=== PATIENT | male | born 1930 | race Caucasian/White ===

== ENCOUNTER 2018-10-27 20:40 | Observation (INO) ==
--- NOTE | 2018-10-27 21:33 | Emergency Department Note ---
Disposition Clinical Impression: Acute exacerbation of chronic obstructive airways disease Disposition: Admitted As Inpatient Condition: Fair Time of Disposition: 00:55 SOB HPI - General Chief Complaint: ED Shortness of Breath/Dyspnea Stated Complaint: shortness of breath since 0830 Time Seen by Provider: 10/27/18 21:30 Source: patient Mode of arrival: private vehicle Limitations: no limitations Nursing Notes Reviewed: Yes Vital Signs Reviewed: Yes - History of Present Illness Patient presents to the ED with with complaint of shortness of breath. States it has been going on since about 8:30 this morning but he felt fine when he first woke up. He has not had any cough. No leg swelling. No chest pain. No fever or chills. No abdominal pain, nausea, vomiting, diarrhea or constipation. He states he recently got over pneumonia that was diagnosed back on September 30. States he had a chest x-ray on October 20 that showed the pneumonia was gone. He was on a Z-Nj and steroids at that time. He normally wears 2 L of oxygen only at night but today was wearing it all day long because of his shortness of breath without improvement. He did 2 nebulizer treatments at home as well without improvement. He also took his regular Singulair and Breo. History is notable for COPD, CAD, hypertension and prior AL with stents. - Related Data Home Medications Medication Instructions Recorded Confirmed Albuterol Sulfate [Proair Hfa] 2 puff IH DAILY PRN 11/10/15 10/27/18 Levothyroxine [Synthroid] 75 mcg PO DAILY 11/10/15 10/27/18 Metoprolol XL (24 HR) Succ [Toprol 25 mg PO DAILY 11/10/15 10/27/18 Xl] Montelukast [Singulair] 10 mg PO DAILY 11/10/15 10/27/18 Sertraline [Zoloft] 25 mg PO DAILY 11/10/15 10/27/18 Aspirin [Lo-Dose Aspirin EC] 81 mg PO DAILY 01/02/16 10/27/18 Albuterol Sulfate 2.5 aerosol IH TID 01/28/17 10/27/18 Breo Ellipta 200-25 Mcg INH 100 mcg PO DAILY 01/28/17 10/27/18 Albuterol Sulfate [Proair Hfa] 2 puff IH Q4H PRN 01/30/18 10/27/18 Ipratropium [place] 15 ml NS BID 01/30/18 10/28/18 Multivit-Min/FA/Lycopen/Lutein 1 each PO DAILY 01/30/18 10/27/18 [Centrum Silver Men Tablet] Ascorbic Acid/Bioflavonoids [Vit 1 each PO DAILY 10/27/18 10/27/18 C-Bioflavonoids Tab SA] Magnesium Oxide [Magnesium] 400 mg PO DAILY 10/27/18 10/27/18 Simvastatin [Zocor] 40 mg PO HS 10/27/18 10/27/18 Allergies Allergy/AdvReac Type Severity Reaction Status Date / Time No Known Allergies Allergy Verified 01/30/18 09:37 Constitutional: Denies: fever, chills, weakness, weight change Eyes: Denies: eye pain, eye discharge, vision change ENT ED: Denies: ear pain, throat pain, dental pain, hearing loss, epistaxis, congestion, dysphagia Cardiovascular: Denies: chest pain, palpitations, dyspnea on exertion, edema, syncope Respiratory: Reports: as per HPI, dyspnea. Denies: cough, wheezes, hemoptysis, stridor Gastrointestinal: Denies: abdominal pain, nausea, vomiting, diarrhea, constipation, hematemesis, melena, hematochezia Genitourinary: Denies: urgency, dysuria, frequency, hematuria Musculoskeletal: Denies: back pain, neck pain, arthralgia, myalgia Integumentary: Denies: rash, abrasion, lesions Neurological: Denies: headache, weakness, numbness, paresthesias, confusion, abnormal gait, vertigo Psychiatric: Denies: anxiety, depression, suicidal thoughts, homicidal thoughts, auditory hallucinations, visual hallucinations Endocrine: Denies: fatigue Hematological/Lymphatic: Denies: easy bleeding, easy bruising Allergic/Immunologic: Denies: facial swelling, urticaria Past Medical History - Past Medical History Medical history: Reports: COPD, coronary artery disease, hyperlipidemia, hypertension, myocardial infarction, thyroid disease, other Surgical history: Reports: angioplasty/stent, appendectomy Psychiatric history: Reports: no psych history - Social History Smoking Status: Former smoker Smokeless Tobacco Status: No Alcohol use: Reports: none Drug use: Reports: none Physical Exam - General Limitations: no limitations General appearance: alert, anxious - Head Head exam: atraumatic, normocephalic, normal inspection - Eye Eye exam: Present: normal appearance, PERRL, EOMI - ENT ENT exam: normal exam, normal oropharynx, mucous membranes moist - Neck Neck exam: Present: normal inspection, full ROM, trachea midline - Chest Chest inspection: Present: normal inspection, symmetric chest wall rise - Respiratory Respiratory exam: Absent: respiratory distress - Expanded Respiratory Exam Location: wheezes: Left, Right, Upper, Lower (scattered), decreased breath sounds: Left, Right, Upper, Lower - Cardiovascular Cardiovascular exam: Present: regular rate, normal rhythm, normal heart sounds - Abdominal Exam Abdominal exam: Present: soft, Non-Tender. Absent: tenderness, distention, guarding, rebound, rigidity - Extremities Exam Extremities exam: Present: normal inspection, full ROM. Absent: tenderness, pedal edema - Back Exam Back exam: Present: normal inspection, full ROM. Absent: tenderness - Neurological Exam Neurological exam: Present: alert, oriented X3 - Psychiatric Psychiatric exam: Present: normal affect, normal mood - Skin Skin exam: Present: warm, dry, intact, normal color Course Course Narrative: Patient presents to the ED with shortness of breath is been going on all day. He was 84% on room air on arrival and was placed on 2 L with improvement in the low 90s. Vital signs are otherwise stable although he is hypertensive. Lung sounds are diminished with scattered wheezing. He will be given a nebulizer treatment and steroids for what may be a simple COPD exacerbation. Will obtain lab work and chest x-ray for further evaluation however given his recent pneumonia. - Reevaluation(s) Reevaluation #1: Chest x-ray showed COPD changes and what was favored to be atelectasis versus pneumonia. He does have a elevated white blood cell count however that is afebrile. While lung sounds were improved after his treatment he was still very short of breath with just ambulating to the bathroom. Discussed with patient admission for his COPD exacerbation and he is in agreement. Will cover with doxycycline. I spoke to the hospitalist, Dr. Mcdaniels, who agreed to accept patient. Vital Signs O2 Sat by Pulse Oximetry 84 10/27/18 20:40 Temperature 98.3 F 10/28/18 03:07 Pulse Rate 89 10/28/18 03:07 Respiratory Rate 17 10/28/18 03:07 Blood Pressure 149/75 10/28/18 03:07 O2 Sat by Pulse Oximetry 94 10/28/18 03:07 Oxygen Delivery Oxygen Delivery Nasal Cannula Shortness of Breath/Dyspnea - Differential Diagnosis Likely: acute exacerbation of chronic obstructive airways disease, congestive heart failure, pneumonia - Medical Records Medical records reviewed: Yes I reviewed the patient's medical records. - Lab Data Lab results reviewed: Yes I reviewed the patient's lab results. Result diagrams: 10/27/18 20:50 10/27/18 20:50 Lab Results 10/27/18 10/27/18 10/27/18 Range/Units 20:50 20:50 20:50 WBC 16.2 H (4.3-11.1) K/mcL RBC 4.17 L (4.19-5.50) M/mcL Hgb 13.1 (12.9-16.9) g/dL Hct 39.1 (37.5-50.1) % MCV 93.8 (83.0-100.0) fL MCH 31.4 (28.0-33.3) pg MCHC 33.5 (31.6-35.5) g/dL RDW 13.4 (11.5-14.5) % Plt Count 256 (140-400) K/mcL MPV 9.9 (9.4-12.4) fL Immature Gran % 0.4 (0-4) % Seg Neutrophils % 80.7 % Lymphocytes % 9.9 % Monocytes % 7.6 % Eosinophils % 1.2 % Basophils % 0.2 % Neutrophils # 13.1 H (1.6-8.9) K/mcL Lymphocytes # 1.6 (0.6-4.6) K/mcL Monocytes # 1.2 (0.0-1.3) K/mcL Eosinophils # 0.2 (0.0-0.6) K/mcL Basophils # 0.0 (0.0-0.2) K/mcL PT 12.3 H (9.4-12.1) Seconds INR 1.1 Sodium 133 L (136-145) mEq/L Potassium 3.9 (3.5-5.1) mEq/L Chloride 99 (98-107) mEq/L Carbon Dioxide 27 (23-29) mEq/L BUN 21 (8-23) mg/dL Creatinine 1.04 (0.70-1.30) mg/dL Est GFR ( Amer) > 60 (> 60) Est GFR (Non-Af Amer) > 60 (> 60) BUN/Creatinine Ratio 20 (6-26) Glucose 104 (70-105) mg/dL Calculated Osmolality 279 L (280-300) Lactic Acid (0.5-2.2) mmol/L Calcium 8.9 (8.6-10.3) mg/dL Troponin I < 0.03 (< 0.04) ng/mL B-Natriuretic Peptide (Less than 100) pg/mL 10/27/18 10/27/18 Range/Units 20:50 20:50 WBC (4.3-11.1) K/mcL RBC (4.19-5.50) M/mcL Hgb (12.9-16.9) g/dL Hct (37.5-50.1) % MCV (83.0-100.0) fL MCH (28.0-33.3) pg MCHC (31.6-35.5) g/dL RDW (11.5-14.5) % Plt Count (140-400) K/mcL MPV (9.4-12.4) fL Immature Gran % (0-4) % Seg Neutrophils % % Lymphocytes % % Monocytes % % Eosinophils % % Basophils % % Neutrophils # (1.6-8.9) K/mcL Lymphocytes # (0.6-4.6) K/mcL Monocytes # (0.0-1.3) K/mcL Eosinophils # (0.0-0.6) K/mcL Basophils # (0.0-0.2) K/mcL PT (9.4-12.1) Seconds INR Sodium (136-145) mEq/L Potassium (3.5-5.1) mEq/L Chloride (98-107) mEq/L Carbon Dioxide (23-29) mEq/L BUN (8-23) mg/dL Creatinine (0.70-1.30) mg/dL Est GFR ( Amer) (> 60) Est GFR (Non-Af Amer) (> 60) BUN/Creatinine Ratio (6-26) Glucose (70-105) mg/dL Calculated Osmolality (280-300) Lactic Acid 0.9 (0.5-2.2) mmol/L Calcium (8.6-10.3) mg/dL Troponin I (< 0.04) ng/mL B-Natriuretic Peptide 162 H (Less than 100) pg/mL - Radiology Data Radiology results reviewed: Yes I reviewed the patient's radiology results. ITS Impressions Chest X-Ray 10/27/18 21:44 IMPRESSION: Emphysema with COPD and basilar opacities favored to represent atelectasis although equivocal for developing airspace disease at the left lung base. RECOMMENDATION: Consider follow-up CT chest for further characterization versus follow-up radiographs in 6-8 weeks. D/ / Juan Ellison / Juan Ellison Interpreting Provider: Juan Ellison - EKG Data EKG attestation: Yes I reviewed and interpreted this EKG. EKG shows normal: Reports: sinus rhythm Rate: Reports: normal Rhythm: Reports: NSR [place]/QRS: Reports: normal Interpretation: Reports: no acute changes
[2018-10-27] MEDS ORDERED: methylPREDNISolone 125 MG/2 ML VIAL IVP ONE (21:44)
[2018-10-27] MEDS ORDERED: Ipratropium/Albuterol Neb 3 ML IH ONE (21:44)
[2018-10-27 21:50] LABS: Basophils % 0.2 %; Eosinophils # 0.2 K/mcL (0.0-0.6); Eosinophils % 1.2 %; Hematocrit 39.1 % (37.5-50.1); Hemoglobin 13.1 g/dL (12.9-16.9); Immature Granulocytes % 0.4 % (0-4); Lymphocytes # 1.6 K/mcL (0.6-4.6); Lymphocytes % 9.9 %; Mean Corpuscular HGB Conc 33.5 g/dL (31.6-35.5); Mean Corpuscular Hemoglobin 31.4 pg (28.0-33.3); Mean Corpuscular Volume 93.8 fL (83.0-100.0); Mean Platelet Volume 9.9 fL (9.4-12.4); Monocytes # 1.2 K/mcL (0.0-1.3); Monocytes % 7.6 %; Neutrophils # 13.1 K/mcL (1.6-8.9); Platelet Count 256 K/mcL (140-400); Red Blood Count 4.17 M/mcL (4.19-5.50); Red Cell Distribution Width 13.4 % (11.5-14.5); Segmented Neutrophils % 80.7 %; White Blood Count 16.2 K/mcL (4.3-11.1)
[2018-10-27 21:52] LABS: INR 1.1; Prothrombin Time 12.3 Seconds (9.4-12.1)
[2018-10-27 22:00] LABS: BUN/Creatinine Ratio 20 (6-26); Blood Urea Nitrogen 21 mg/dL (8-23); Calcium 8.9 mg/dL (8.6-10.3); Carbon Dioxide 27 mEq/L (23-29); Chloride 99 mEq/L (98-107); Glucose 104 mg/dL (70-105); Osmolality,Calculated 279 (280-300); Potassium 3.9 mEq/L (3.5-5.1); Sodium 133 mEq/L (136-145); eGFR For African Americans > 60 (> 60); eGFR For Non-African Americans > 60 (> 60)
[2018-10-27 22:04] LABS: Troponin I < 0.03 ng/mL (< 0.04)
[2018-10-28] MEDS ORDERED: Doxycycline 100 MG CAPSULE PO ONE (00:54)
[2018-10-28] MEDS ORDERED: Naloxone 0.4 MG/ML INJ IVP PRN ×2 (00:56→01:19)
[2018-10-28] MEDS: Ipratropium/Albuterol Neb 3 ML IH SCH ×4 (02:12→15:40)
[2018-10-28] MEDS ORDERED: BREO ELLIPTA PO SCH (09:00)
[2018-10-28] MEDS ORDERED: Aspirin Enteric Coated 81 MG Tablet PO SCH (09:00)
[2018-10-28] MEDS ORDERED: Magnesium Oxide 400 MG TABLET PO SCH (09:00)
[2018-10-28] MEDS ORDERED: Metoprolol XL (24 HR) Succ 25 MG TAB.ER.24H PO SCH (09:00)
[2018-10-28] MEDS ORDERED: Multivit/Ca/Min/Fe/FA 1 TAB TABLET PO SCH (09:00)
[2018-10-28] MEDS ORDERED: ASCORBIC ACID PO SCH (09:00)
[2018-10-28] MEDS ORDERED: BIOFLAVONOIDS PO SCH (09:00)
--- NOTE | 2018-10-28 12:39 | Electrocardiograph Report ---
[facility] Test Date: 2018-10-27 Pat Name: Brent Chavez Department: EDP-11 Room: [facility] Gender: M Elect Equip Maint Eng: : 1930 Requested By: Jessica Mishra Order Number: [id number] Reading MD: Matthew Jesus Measurements Intervals [place] Rate: 91 P: 83 [place]: 243 QRS: 79 QRSD: 87 T: 44 QT: 346 QTc: 426 Interpretive Statements Sinus rhythm Electronically Signed On 10-28-2018 12:37:53 EDT by Matthew Jesus
--- NOTE | 2018-10-28 14:39 | Internal Med History&Physical ---
Date of Encounter: 10/28/18 Time of Encounter: 14:10 Assessment and Plan (1) Community acquired pneumonia Current visit: No Status: Acute He was given doxycycline and Solu-Medrol in emergency room. He will be given Ceftin and Zithromax with lactobacillus at discharge. Qualifiers: Laterality: unspecified laterality Qualified Code(s): J18.9 - Pneumonia, unspecified organism (2) Hypothyroidism Current visit: No Status: Chronic TSH was normal at 0.404 on 02/12/2018. Qualifiers: Hypothyroidism type: unspecified Qualified Code(s): E03.9 - Hypothyroidism, unspecified Internal Medicine - H&P: HPI Chief complaint: Dyspnea Admitted From: Emergency Dept Plans for Post Hospital Care: Home History of present illness: Mr. Chavez is a 88 year old male came to emergency room stating he had onset of dyspnea a few hours earlier while doing usual activities at home. He used mental oxygen he previously been prescribed but felt minimally improved. He f elt his heart rate was fast. He came to emergency room was evaluated and was felt to have exacerbation of COPD. He was admitted to [facility] floor for ongoing care needs. He states he feels significantly improved at the present time and near baseline and wishes to be discharged home. His respiratory history is significant for having smoked from age [age] up to 1-1/2 packs per day. He had PFTs ap proximately 2005 and was told he had COPD. He wears oxygen at bedtime and when necessary during the daytime. He has not been evaluated for ANNI. He has hypertension and ASHD status post IL in 1994 and 2002. He had PTCA 1994 without stents and PTCA 2002 with stents. His last EST was December 2015 and showed no perfusion evidence and equivocal EKG evidence of ischemia. He follows with a [place] event sales manager as well as a event sales manager in [place]. He was diagnosed with factor V Leiden deficiency approximately 1999 after his granddaughter had 2 miscarriages. He denies known DVT or pulmonary embolus. He took Coumadin briefly but after being told of the risks of taking it he decided to use aspirin 162 mg daily. Past Med Surg Social Fam HX - Past Medical History Medical history: COPD, coronary artery disease, hyperlipidemia, hypertension, myocardial infarction, thyroid disease, other Additional medical history: Factor 5; [place] x2 (2002) Psychiatric history: no psych history - Past Surgical History Surgical History: angioplasty/stent, appendectomy - Social History Smoking Status: Former smoker Smokeless Tobacco Status: No Alcohol use: none Drug use: none - Family History Father Living Status: Cause of : Blood Clot Internal Medicine - H&P: Meds Albuterol Sulfate [Proair Hfa] 2 puff IH DAILY PRN 11/10/15 [History] Levothyroxine [Synthroid] 75 mcg PO DAILY 11/10/15 [History] Metoprolol XL (24 HR) Succ [Toprol Xl] 25 mg PO DAILY 11/10/15 [History] Montelukast [Singulair] 10 mg PO DAILY 11/10/15 [History] Sertraline [Zoloft] 25 mg PO DAILY 11/10/15 [History] Aspirin [Lo-Dose Aspirin EC] 81 mg PO DAILY 01/02/16 [History] Albuterol Sulfate 2.5 aerosol IH TID 01/28/17 [History] Breo Ellipta 200-25 Mcg INH 100 mcg PO DAILY 01/28/17 [History] Albuterol Sulfate [Proair Hfa] 2 puff IH Q4H PRN 01/30/18 [History] Ipratropium [place] 15 ml NS BID 01/30/18 [History] Multivit-Min/FA/Lycopen/Lutein [Centrum Silver Men Tablet] 1 each PO DAILY 01/30/18 [History] Ascorbic Acid/Bioflavonoids [Vit C-Bioflavonoids Tab SA] 1 each PO DAILY 10/27/18 [History] Magnesium Oxide [Magnesium] 400 mg PO DAILY 10/27/18 [History] Simvastatin [Zocor] 40 mg PO HS 10/27/18 [History] Allergy/AdvReac Type Severity Reaction Status Date / Time No Known Allergies Allergy Verified 01/30/18 09:37 All Systems PM: A 10-system review of systems was performed and is negative for pertinent findings except as documented above in the HPI. Review of systems: Review of systems from his January 2017 [facility] hospitalization were reviewed and revised as below. Gen.: His weight has been stable at approximately 74 kg since January 2017. Cardiovascular: As per history of present illness Respiratory: As per history of present illness. GI: He denies disorders with his liver gallbladder or exocrine pancreas : No history of hematuria dysuria or kidney stones Neurologic: No history of large distribution strokes or seizures Endocrine: He denies diabetes but has hypothyroidism and hyperlipidemia Hematology/oncology: He has factor V Leiden deficiency but denies other blood disorders or malignancies Psychiatric: Denies anxiety other mental health issues. He has depression and is on Zoloft [place] skeletal: He has arthritis but no known gout or osteoporosis. - Constitutional Vitals: Temp Pulse Resp BP Pulse Ox 97.8 F 102 16 124/62 95 10/28/18 12:07 10/28/18 12:07 10/28/18 12:07 10/28/18 12:07 10/28/18 12:07 Exam: Gen.: He is a well-developed well-nourished male resting comfortably in bed who appears in no acute distress HEENT: Head is atraumatic and normocephalic. Eyes: EOMI. There is no scleral icterus. Mouth: Mucosa is moist. Neck: Supple and nontender. There is no thyromegaly or adenopathy noted. Heart: Regular without murmurs gallops or ectopics Lungs: No wheezes or crackles are heard. Abdomen: Soft and nontender. No masses or guarding are noted. Extremities: There is no cyanosis edema or clubbing noted. Dorsalis pedis and posterior tibial pulses are trace to 1+ palpable bilaterally. Neurologic: Mental status: He is talkative and a good historian. He is hard of hearing. Cranial nerves: Smile is symmetric. Forehead wrinkles bilaterally. Tongue protrudes midline. EOMI. Motor: There is no pronator drift. Cerebellar: Finger to nose is intact bilaterally. Skin: Warm and dry Internal Med - H&P Results - Labs CBC & Chem 7: 10/27/18 20:50 10/27/18 20:50 Labs: Short CBC 10/27/18 Range/Units 20:50 WBC 16.2 H (4.3-11.1) K/mcL Hgb 13.1 (12.9-16.9) g/dL Hct 39.1 (37.5-50.1) % Plt Count 256 (140-400) K/mcL Neutrophils # 13.1 H (1.6-8.9) K/mcL BMP 10/27/18 20:50 Sodium 133 L Potassium 3.9 Chloride 99 Carbon Dioxide 27 BUN 21 Creatinine 1.04 Glucose 104 Calcium 8.9 Cardiac Enzymes 10/27/18 Range/Units 20:50 Troponin I < 0.03 (< 0.04) ng/mL - Impressions ITS Impressions Chest X-Ray 10/27/18 21:44 IMPRESSION: Emphysema with COPD and basilar opacities favored to represent atelectasis although equivocal for developing airspace disease at the left lung base. RECOMMENDATION: Consider follow-up CT chest for further characterization versus follow-up radiographs in 6-8 weeks. D/ / Juan Ellison / Juan Ellison Interpreting Provider: Juan Ellison - VTE Reasons for not Prescribing Prophylaxis: Treatment not Indicated - Low risk for VTE
--- NOTE | 2018-10-28 14:47 | Discharge Summary ---
Date of Encounter: 10/28/18 Time of Encounter: 14:10 - Discharge Diagnosis (1) Community acquired pneumonia Priority: Primary Status: Acute Qualifiers: Laterality: unspecified laterality Qualified Code(s): J18.9 - Pneumonia, unspecified organism (2) Hypothyroidism Priority: Secondary Status: Chronic Qualifiers: Hypothyroidism type: unspecified Qualified Code(s): E03.9 - Hypothyroidism, unspecified Hospital course: Mr. Chavez is a 88 year old male who came to emergency room stating he had onset of dyspnea a few hours earlier while doing usual activities at home. He used mental oxygen he previously been prescribed but felt minimally improved. He felt his heart rate was fast. He came to emergency room was evaluated and was felt to have exacerbation of COPD. He was admitted to [facility] for ongoing care needs. Initial orders were written by the emergency room physician. I saw him on October 28 and performed a history physical and discharge. He was given doxycycline and Solu-Medrol in emergency room. When I saw him he stated his dyspnea was significantly improved and he felt near baseline. He wished to be discharged home. I offered keeping him another day in the hospital but he felt stable for discharge. He will receive antibiotic and probiotic for 5 additional days at discharge. Supplemental oxygen is available at home already. I told him he could discuss with his PCP ongoing use of aspirin versus oral a nticoagulant since he has claimed a diagnosis of factor V Leiden deficiency. - Time Spent with Patient Total time spent providing and/or coordinating discharge services: - Discharge Medications Prescriptions: New Cefuroxime PO [Ceftin] 500 mg PO Q12HR #10 tablet Lactobacillus [Culturelle] 1 each PO BID #10 cap.sprink Azithromycin [Zithromax] 250 mg PO DAILY #5 tablet Continued Sertraline [Zoloft] 25 mg PO DAILY Montelukast [Singulair] 10 mg PO DAILY Metoprolol XL (24 HR) Succ [Toprol Xl] 25 mg PO DAILY Levothyroxine [Synthroid] 75 mcg PO DAILY Albuterol Sulfate [Proair Hfa] 2 puff IH DAILY PRN PRN Reason: Shortness Of Breath Aspirin [Lo-Dose Aspirin EC] 81 mg PO DAILY Breo Ellipta 200-25 Mcg INH 100 mcg PO DAILY Albuterol Sulfate 2.5 aerosol IH TID Multivit-Min/FA/Lycopen/Lutein [Centrum Silver Men Tablet] 1 each PO DAILY Albuterol Sulfate [Proair Hfa] 2 puff IH Q4H PRN PRN Reason: Shortness Of Breath Ipratropium [place] 15 ml NS BID Ascorbic Acid/Bioflavonoids [Vit C-Bioflavonoids Tab SA] 1 each PO DAILY Magnesium Oxide [Magnesium] 400 mg PO DAILY Simvastatin [Zocor] 40 mg PO HS Home Medications: Albuterol Sulfate [Proair Hfa] 2 puff IH DAILY PRN 11/10/15 [History] Levothyroxine [Synthroid] 75 mcg PO DAILY 11/10/15 [History] Metoprolol XL (24 HR) Succ [Toprol Xl] 25 mg PO DAILY 11/10/15 [History] Montelukast [Singulair] 10 mg PO DAILY 11/10/15 [History] Sertraline [Zoloft] 25 mg PO DAILY 11/10/15 [History] Aspirin [Lo-Dose Aspirin EC] 81 mg PO DAILY 01/02/16 [History] Albuterol Sulfate 2.5 aerosol IH TID 01/28/17 [History] Breo Ellipta 200-25 Mcg INH 100 mcg PO DAILY 01/28/17 [History] Albuterol Sulfate [Proair Hfa] 2 puff IH Q4H PRN 01/30/18 [History] Ipratropium [place] 15 ml NS BID 01/30/18 [History] Multivit-Min/FA/Lycopen/Lutein [Centrum Silver Men Tablet] 1 each PO DAILY 01/30/18 [History] Ascorbic Acid/Bioflavonoids [Vit C-Bioflavonoids Tab SA] 1 each PO DAILY 10/27/18 [History] Magnesium Oxide [Magnesium] 400 mg PO DAILY 10/27/18 [History] Simvastatin [Zocor] 40 mg PO HS 10/27/18 [History] Azithromycin [Zithromax] 250 mg PO DAILY #5 tablet 10/28/18 [Rx] Cefuroxime PO [Ceftin] 500 mg PO Q12HR #10 tablet 10/28/18 [Rx] Lactobacillus [Culturelle] 1 each PO BID #10 cap.sprink 10/28/18 [Rx] Allergies/Adverse Reactions: Allergy/AdvReac Type Severity Reaction Status Date / Time No Known Allergies Allergy Verified 01/30/18 09:37 Date of admission: 10/28/18 01:15 Primary care physician: Sergio Ordonez M.D. - Constitutional Vitals: Temp Pulse Resp BP Pulse Ox 97.8 F 102 16 124/62 95 10/28/18 12:07 10/28/18 12:07 10/28/18 12:07 10/28/18 12:07 10/28/18 12:07 - Patient Status Disposition: Home, Self-Care Condition: Fair - Discharge Instructions Follow Up With: Sergio Ordonez MD [Partnered Physician] - 1 week Forms: ED Satisfaction Letter - Diet and Activity Activity: resume usual activities as tolerated, wear oxygen at night Diet: advance to your usual diet - VTE Reasons for not Prescribing Prophylaxis: Treatment not Indicated - Low risk for VTE
[2018-10-28 15:05] VITALS: BP 120/64
== END 2018-10-28 16:03 | disposition home or self-care (01) ==
LOC: EMEROOPIK 20:40 → INPPIK 20:40
PROVIDERS: ADMIT Internal Medicine; ATTEND Internal Medicine